=== PATIENT | female | born 1980 | race Caucasian/White ===

== ENCOUNTER 2021-11-30 15:35 | Emergency (ER) | payer OTHER ==
[~2021-11-30] VITALS: Ht 157.5 cm; Wt 120.7 kg
--- OUTSIDE RECORDS SUMMARY | 2021-11-30 15:38 | XMS ---
PreManage Notification: JENNIFER VIZCAINO Security [employer] 1 event(s) in the past 18 months Most recent security events: Elopement at [facility] 08/15/2021 16:12 - Other Details: PATIENT LWBS CRITERIA MET - [facility] - 2 Visits in 30 Days CARE PROVIDERS There are no care providers on record at this time. [facility] has no Care Guidelines for this patient. [facility] ([address] [facility]: Visits indicate total known visits. ED/C VISIT TRACKING (12 MO.) 11/30/2021 15:36 [facility] [place] TYPE: Emergency COMPLAINT: - LOWER ABDOM PAIN 11/24/2021 15:47 [facility] [place] TYPE: Emergency COMPLAINT: - LOWER L SIDE PAIN 08/15/2021 16:12 [facility] [place] TYPE: Emergency COMPLAINT: - SKIN PROBLEM INPATIENT VISIT TRACKING (12 MO.) No inpatient visits to display in this time frame [id number]
[2021-11-30] MEDS ORDERED: BENTYL10 MG/1 ML IM (16:01)
[2021-11-30] MEDS ORDERED: OMEPRAZOLE20 MG PO (16:03)
== END 2021-11-30 19:01 | disposition home or self-care (01) ==
LOC: ED 15:35
DX: R10.2 Pelvic and perineal pain (principal); Z79.899 Other long term (current) drug therapy
CPT/HCPCS: 36415; 76830; 76856; 80053; 81001; 84703; 85025; 99284-25

== ENCOUNTER 2022-02-24 00:07 | Emergency (ER) | payer OTHER ==
[~2022-02-24] VITALS: Ht 157.5 cm; Wt 119.5 kg
[~2022-02-24 00:07] MED LIST: BENTYL10 MG/1 ML IM; OMEPRAZOLE20 MG PO
[2022-02-24] MEDS ORDERED: HYOSCYAMINE0.125 MG PO (00:22)
[2022-02-24] MEDS ORDERED: OMEPRAZOLE40 MG PO (00:23)
[2022-02-24] MEDS ORDERED: CYCLOBENZAPRINE10 MG PO (01:31)
--- NOTE | 2022-02-25 07:29 | EKG ---
[facility] [address] [facility] [place], [place] [address] Signed Normal sinus rhythm Normal ECG No previous ECGs available Confirmed by OSIEL SHANKAR MD ([id number] on 02/25/2022 7:29:39 AM Electronically Signed By: OSIEL SHANKAR MD 02/25/22 0729 PATIENT NAME: CARRILLOJENNIFER JERRY Electrocardiogram DATE OF : 82 PHYSICIAN: OSIEL SHANKAR MD REPORT #: [id number] REPORT IS CONFIDENTIAL AND NOT TO BE RELEASED WITHOUT AUTHORIZATION
== END 2022-02-24 01:55 | disposition home or self-care (01) ==
LOC: ED 00:07
DX: R07.89 Other chest pain (principal); Z88.6 Allergy status to analgesic agent
CPT/HCPCS: 36415; 71045; 80053; 84484; 85025; 93005; 93010

== ENCOUNTER 2025-05-23 18:18 | Emergency (ER) | payer OTHER ==
[~2025-05-23] VITALS: Ht 157.5 cm; Wt 114.0 kg
[~2025-05-23 18:18] MED LIST changes: +CYCLOBENZAPRINE10 MG PO; +DICYCLOMINE HCL10 MG PO; +HYOSCYAMINE0.125 MG PO; +OMEPRAZOLE40 MG PO
[2025-05-23] MEDS ORDERED: HYDROCODON-ACE1 EA10 PO (21:21)
[2025-05-23] MEDS ORDERED: CIPROFLOX-DEXA7.5 ML AS (21:21)
[2025-05-23] MEDS ORDERED: HYDROCODONE BIT/ACETAMINOPHEN 5/325 MG 1 TAB HOME.PACK PO ONE (21:30)
[2025-05-23 21:54] VITALS: BP 151/91
== END 2025-05-23 21:57 | disposition home or self-care (01) ==
LOC: ED 18:18
DX: H66.92 Otitis media, unspecified, left ear (principal); H60.92 Unspecified otitis externa, left ear; Z88.1 Allergy status to other antibiotic agents
CPT/HCPCS: 99282; A9270